=== PATIENT | male | born 1960 | race African-American/Black ===

== ENCOUNTER → 2019-10-16 | Emergency (ER) | payer MEDICAID, OTHER ==
[~2019-10-16] VITALS: Ht 167.6 cm; Wt 96.2 kg
[~2019-10-16] MED LIST: ALBUTEROL SULF 2.5 MG/0.5ML(0.5%) NEB SOLN HHN ONE; IPRATROPIUM BROM 0.5 MG/2.5ML INH SOL HHN ONE; methylPREDNISolone SOD SUCC 125 MG/2 ML VL IV ONE
[2019-10-16 15:36] LABS: Basophils # (auto) 0 10 ^3/uL (0-0.2); Basophils % (auto) 0.3 % (0.0-2.0); Eosinophils # (auto) 0.1 10 ^3/uL (0-0.8); Eosinophils % (auto) 1.3 % (0.0-7.0); Hematocrit 47.3 % (41.0-53.0); Hemoglobin 16.4 g/dL (13.5-17.5); Lymphocytes # (auto) 1.1 10 ^3/uL (0.4-5.4); Lymphocytes % (auto) 12.8 % (10.0-50.0); Mean Corpuscular Hemoglobin 28.9 pg (28.0-32.0); Mean Corpuscular Hgb Conc. 34.7 g/dL (32.0-36.0); Mean Corpuscular Volume 83.3 fL (80.0-100.0); Monocytes # (auto) 0.9 10 ^3/uL (0-1.3); Monocytes % (auto) 10.7 % (0.0-12.0); Neutrophils # (auto) 6.2 10 ^3/uL (1.6-8.6); Neutrophils % (auto) 74.9 % (37.0-80.0); Nucleated Red Blood Cells % 0.1 %; Platelet Count (auto) 253 10^3/uL (140-450); Red Blood Cells 5.68 10^6/uL (4.5-5.90); Red Cell Distribution Width 13.3 % (11.8-14.3); White Blood Cell 8.3 10^3/uL (4.4-10.8)
[2019-10-16 15:56] LABS: Albumin 3.8 g/dL (3.4-5.0); Anion Gap 4 (5-15); Blood Urea Nitrogen 13 mg/dL (7-18); Calcium 8.8 mg/dL (8.5-10.1); Carbon Dioxide 29 mmol/L (21-32); Chloride 105 mmol/L (98-107); Glucose 108 mg/dL (74-106); Potassium 4.1 mmol/L (3.5-5.1); Sodium 138 mmol/L (136-145)
[2019-10-16 16:02] LABS: Alanine Aminotransferase 49 U/L (16-61); Alkaline Phosphatase 119 U/L (45-117); Aspartate Aminotransferase 23 U/L (15-37); BUN/Creatinine Ratio 11.9; Bilirubin, Total 0.8 mg/dL (0.2-1.0); GFR African American 89 mL/min; GFR Non-African American 74 mL/min; Total Protein 7.6 g/dL (6.4-8.2)
[2019-10-16 16:15] VITALS: BP 121/87
== END | disposition home or self-care (01) ==
LOC: ER 14:38
DX: J44.1 Chronic obstructive pulmonary disease with (acute) exacerbation (principal); I10 Essential (primary) hypertension; Z87.891 Personal history of nicotine dependence
CPT/HCPCS: 36415; 71045; 71046; 80053; 83605; 83735; 83880; 84484; 85025; 87040; 93005; 94644; 96374; 99285; J2930; J7644

== ENCOUNTER 2020-12-26 23:54 | Emergency (ER) | payer MEDICAID ==
[~2020-12-26] VITALS: Ht 175.3 cm; Wt 93.9 kg
[2020-12-26 23:56] VITALS: BP 132/87
[2020-12-27] MEDS ORDERED: diphenhdrAMINE HCL 25 MG CAP PO ONE (00:45)
[2020-12-27] MEDS ORDERED: methylPREDNISolone SOD SUCC 125 MG/2 ML VL IM ONE (00:45)
== END 2020-12-27 01:02 | disposition home or self-care (01) ==
LOC: ER 23:54
DX: S60.562A Insect bite (nonvenomous) of left hand, initial encounter (principal); I10 Essential (primary) hypertension; E78.5 Hyperlipidemia, unspecified; W57.XXXA Bitten or stung by nonvenomous insect and other nonvenomous arthropods, initial encounter; Y93.89 Activity, other specified; Y92.89 Other specified places as the place of occurrence of the external cause; Y99.8 Other external cause status
CPT/HCPCS: 96372; 99283; J2930

== ENCOUNTER 2021-08-07 15:28 | Emergency (ER) | payer MEDICAID ==
[~2021-08-07] VITALS: Ht 175.3 cm; Wt 93.4 kg
[2021-08-07 18:49] VITALS: BP 130/87
[2021-08-07] MEDS ORDERED: PRED20TA2 PO (18:54)
[2021-08-07] MEDS ORDERED: PSEU1SYP6 PO (18:54)
[2021-08-07] MEDS ORDERED: AZITTAB PO (18:54)
[2021-08-07] MEDS ORDERED: ACET-1304 PO (18:54)
== END 2021-08-07 19:35 | disposition home or self-care (01) ==
LOC: ER 15:28
DX: U07.1 COVID-19 (principal); R51.9 Headache, unspecified; R50.9 Fever, unspecified; E66.9 Obesity, unspecified; Z68.30 Body mass index [BMI] 30.0-30.9, adult
CPT/HCPCS: 36415; 71045; 87426

== ENCOUNTER 2021-10-27 02:17 | Emergency (ER) | payer MEDICAID ==
[~2021-10-27] VITALS: Ht 175.3 cm; Wt 92.1 kg
[~2021-10-27 02:17] MED LIST changes: +ACET-1304 PO; -ALBUTEROL SULF 2.5 MG/0.5ML(0.5%) NEB SOLN HHN ONE; +AZITTAB PO; -IPRATROPIUM BROM 0.5 MG/2.5ML INH SOL HHN ONE; +PRED20TA2 PO; +PSEU1SYP6 PO; -methylPREDNISolone SOD SUCC 125 MG/2 ML VL IV ONE
[2021-10-27 03:09] LABS: Basophils # (auto) 0.2 10 ^3/uL (0-0.2); Basophils % (auto) 2.5 % (0.0-2.0); Eosinophils # (auto) 0.2 10 ^3/uL (0-0.8); Eosinophils % (auto) 2.6 % (0.0-7.0); Hematocrit 39.4 % (41.0-53.0); Hemoglobin 13.6 g/dL (13.5-17.5); Lymphocytes % (auto) 33.8 % (10.0-50.0); Mean Corpuscular Hemoglobin 28.8 pg (28.0-32.0); Mean Corpuscular Hgb Conc. 34.5 g/dL (32.0-36.0); Mean Corpuscular Volume 83.5 fL (80.0-100.0); Monocytes # (auto) 0.3 10 ^3/uL (0-1.3); Monocytes % (auto) 3.7 % (0.0-12.0); Neutrophils # (auto) 5.2 10 ^3/uL (1.6-8.6); Neutrophils % (auto) 57.4 % (37.0-80.0); Nucleated Red Blood Cells % 0.1 %; Red Blood Cells 4.72 10^6/uL (4.5-5.90); Red Cell Distribution Width 13.6 % (11.8-14.3)
[2021-10-27 03:35] LABS: Albumin 3.3 g/dL (3.4-5.0); Calcium 8.4 mg/dL (8.5-10.1); Potassium 3.8 mmol/L (3.5-5.1)
[2021-10-27 03:38] LABS: BUN/Creatinine Ratio 16.5
[2021-10-27 03:42] LABS: Bilirubin, Total 0.6 mg/dL (0.2-1.0); Total Protein 6.4 g/dL (6.4-8.2)
[2021-10-27 03:45] LABS: Urine Bacteria NONE SEEN /hpf (None Seen); Urine Blood Negative /uL (Negative); Urine Specific Gravity 1.022 (1.001-1.035); Urine WBC 5 /hpf (0 - 3)
[2021-10-27 07:00] VITALS: BP 114/72
== END 2021-10-27 07:02 | disposition home or self-care (01) ==
LOC: ER 02:19
DX: R07.89 Other chest pain (principal); Z20.822 Contact with and (suspected) exposure to COVID-19
CPT/HCPCS: 36415; 71045; 80053; 81001; 83880; 84484; 85025; 93005

== ENCOUNTER 2022-04-14 09:30 | Emergency (ER) | payer MEDICAID ==
[~2022-04-14] VITALS: Ht 175.3 cm; Wt 204.0 kg
[2022-04-14 11:50] VITALS: BP 136/74
[2022-04-14 11:53] LABS: Urine Bacteria FEW /hpf (None Seen); Urine Blood Negative /uL (Negative); Urine Mucus FEW (None Seen); Urine Specific Gravity 1.026 (1.001-1.035); Urine WBC 33 /hpf (0 - 3)
[2022-04-14] MEDS ORDERED: cefTRIAXone SOD 1,000 MG VL IM ONE (12:00)
[2022-04-14] MEDS ORDERED: LEVO500T31 PO (12:01)
[2022-04-14] MEDS ORDERED: TAM04C PO (12:01)
== END 2022-04-14 12:26 | disposition home or self-care (01) ==
LOC: ER 09:30
DX: N39.0 Urinary tract infection, site not specified (principal); J44.9 Chronic obstructive pulmonary disease, unspecified; E78.5 Hyperlipidemia, unspecified; I10 Essential (primary) hypertension; Z87.891 Personal history of nicotine dependence; Z79.2 Long term (current) use of antibiotics; Z79.899 Other long term (current) drug therapy; Z88.8 Allergy status to other drugs, medicaments and biological substances
CPT/HCPCS: 81001; 96372; 99283; J0696

== ENCOUNTER 2022-10-14 12:11 | Emergency (ER) | payer MEDICAID ==
[~2022-10-14] VITALS: Ht 175.3 cm; Wt 85.0 kg
[~2022-10-14 12:11] MED LIST changes: +LEVO500T31 PO; +TAM04C PO
[2022-10-14] MEDS ORDERED: GABAPENTIN 300 MG CAP PO ONE (12:30)
[2022-10-14 12:57] LABS: Basophils # (auto) 0 10 ^3/uL (0-0.2); Basophils % (auto) 0.7 % (0.0-2.0); Eosinophils # (auto) 0.1 10 ^3/uL (0-0.8); Eosinophils % (auto) 1.4 % (0.0-7.0); Hemoglobin 15.3 g/dL (13.5-17.5); Lymphocytes # (auto) 2.3 10 ^3/uL (0.4-5.4); Lymphocytes % (auto) 30.9 % (10.0-50.0); Mean Corpuscular Hemoglobin 28.1 pg (28.0-32.0); Mean Corpuscular Hgb Conc. 33.4 g/dL (32.0-36.0); Mean Corpuscular Volume 84.2 fL (80.0-100.0); Monocytes % (auto) 13.9 % (0.0-12.0); Neutrophils % (auto) 53.1 % (37.0-80.0); Nucleated Red Blood Cells % 0.1 %; Red Blood Cells 5.46 10^6/uL (4.5-5.90); Red Cell Distribution Width 14.1 % (11.8-14.3); White Blood Cell 7.5 10^3/uL (4.4-10.8)
[2022-10-14 13:14] LABS: Albumin 3.6 g/dL (3.4-5.0); Calcium 8.9 mg/dL (8.5-10.1); Potassium 4.1 mmol/L (3.5-5.1)
[2022-10-14 13:18] LABS: BUN/Creatinine Ratio 14.8; Total Protein 6.6 g/dL (6.4-8.2)
[2022-10-14 15:59] VITALS: BP 123/80
[2022-10-14] MEDS ORDERED: GABA300C10 PO (16:19)
== END 2022-10-14 16:29 | disposition home or self-care (01) ==
LOC: ER 12:11
DX: M54.12 Radiculopathy, cervical region (principal); J44.9 Chronic obstructive pulmonary disease, unspecified; E78.5 Hyperlipidemia, unspecified; I10 Essential (primary) hypertension; Z87.891 Personal history of nicotine dependence; Z88.6 Allergy status to analgesic agent
CPT/HCPCS: 36415; 72040; 80053; 83880; 84484; 85025; 93005